=== PATIENT | female | born 1985 | race African-American/Black ===

== ENCOUNTER 2017-04-13 21:05 | Observation (INO) | payer SELFPAY ==
--- NOTE | 2017-04-13 21:23 | PDOC ---
Rapid Medical Evaluation Chief Complaint: Respiratory Time Seen by Provider: 04/13/17 21:16 Medical Evaluation: Allergies Allergy/AdvReac Type Severity Reaction Status Date / Time ciprofloxacin [From Cipro] Allergy Verified 04/13/17 21:15 pseudoephedrine Allergy Verified 04/13/17 21:15 [From Sudafed] acetaminophen [From Tylenol] AdvReac Verified 04/13/17 21:15 04/13/17 21:16 32yo female patient w/ PmHx: seasonale allergies, sinus infection, uterine fibroids presents to ED c/o wheezing x 4 weeks. Patient was seen at Urgent Care diagnose with influenza 3 weeks ago and given Zithromax and prednisone. Patient was also seen at [facility] and [facility] for similar symptoms which have not resolved. Patient reports taking 60 mg of prednisone and albuterol treatment prior to her arrival today. LNMP: Mar 21.
[2017-04-13] MEDS: ALBUTEROL SO4 0.083% IH SOL 2.5 MG/3 ML VIAL.NEB. NEB SCH ×4 (21:43→22:33)
[2017-04-13 21:51] LABS: URINE APPEARANCE CLEAR; URINE BILIRUBIN NEGATIVE (NEGATIVE); URINE BLOOD NEGATIVE (NEGATIVE); URINE COLOR YELLOW; URINE GLUCOSE (UA) NEGATIVE (NEGATIVE); URINE KETONE NEGATIVE (NEGATIVE); URINE LEUK ESTERASE TRACE (NEGATIVE); URINE NITRITE NEGATIVE (NEGATIVE); URINE PROTEIN NEGATIVE (NEGATIVE); URINE UROBILINOGEN NEGATIVE mg/dL (0.2-1.0)
--- NOTE | 2017-04-13 22:02 | PDOC ---
History of Present Illness - History of Present Illness Initial Comments: 04/13/17 22:00 CHIEF COMPLAINT: cough, wheezing HISTORY OF PRESENT ILLNESS: 32 yo F with hx presents to ED c/o wheezing x 4 weeks. Patient was seen at Urgent Care diagnose with influenza 3 weeks ago and given Zithromax and prednisone. Patient was also seen at [facility] and [facility] for similar symptoms which have not resolved. Patient reports she was prescribed 40 mg prednisone daily but as she was driving up here today she called her doctor "who I know works here and he told me to take another one" for a total of 60 mg of prednisone prior to arrival today. She reports the wheezing has been intermittent and "will go away for a little bit, but then it'll come back even worse." PAST MEDICAL HISTORY: allergies, sinus infections, uterine fibroids FAMILY HISTORY: Denies SOCIAL HISTORY: Denies tobacco, alcohol, illicit drug use. SURGICAL HISTORY: Denies ALLERGIES: "all the OTC meds", cipro REVIEW OF SYSTEMS General/Constitutional: Denies fever or chills. Denies weakness. HEENT: Denies change in vision. Denies ear pain or discharge. Denies sore throat. Cardiovascular: Denies chest pain or shortness of breath. Respiratory: Cough and intermittent recurrent wheezing x 1 month. Gastrointestinal: Denies nausea, vomiting, diarrhea or constipation. Genitourinary: Denies dysuria, frequency, or change in urination. Musculoskeletal: Denies joint or muscle swelling or pain. Denies neck or back pain. Skin: Denies rash. Neurologic: Denies headache, vertigo, loss of consciousness, or loss of sensation. PHYSICAL EXAM General Appearance: Well-appearing, appropriately dressed. No apparent distress. HEENT: EOMI, PERRLA. No conjunctival pallor. No photophobia, scleral icterus. Neck: Supple. Trachea midline. No tenderness, rigidity, carotid bruit, stridor , lymphadenopathy, or thyromegaly. Respiratory/Chest: Persistent wheezing to left lower lung. No shortness of breath, chest tenderness, respiratory distress, accessory muscle use. No crackles, rales, rhonchi, stridor, wheezing, dullness Cardiovascular: RRR. S1, S2. Gastrointestinal/Abdominal: Normal bowel sounds. Abdomen soft, non-distended. No tenderness or rebound tenderness. No organomegaly, pulsatile mass, guarding , hernia, hepatomegaly, splenomegaly. Musculoskeletal/Extremities: Normal inspection. FROM of all extremities, normal capillary refill. Pelvis Stable. No CVA tenderness. No tenderness to extremities, pedal edema, swelling, erythema or deformity. Integumentary: Appropriate color, dry, warm. No cyanosis, erythema, jaundice or rash Neurologic: health center manager II-XII intact. Fully oriented, alert. Appropriate mood/affect. Motor strength 5/5. No appreciable EOM palsy, facial droop or sensory deficit. <Norma Barrow - Last Filed: 04/13/17 22:38> <Reshma Young - Last Filed: 04/14/17 01:57> - General Chief Complaint: Respiratory Stated Complaint: REF BYDOC, COUGH Past History - Suicide/Smoking/Psychosocial Hx Smoking History: Never smoked <Norma Barrow - Last Filed: 04/13/17 22:38> <Reshma Young - Last Filed: 04/14/17 01:57> - Past Medical History Allergies/Adverse Reactions: Allergies Allergy/AdvReac Type Severity Reaction Status Date / Time birch Allergy Verified 04/13/17 21:17 ciprofloxacin [From Cipro] Allergy Verified 04/13/17 21:15 pseudoephedrine Allergy Verified 04/13/17 21:15 [From Sudafed] acetaminophen [From Tylenol] AdvReac Verified 04/13/17 21:15 ibuprofen [From Motrin] AdvReac Verified 04/13/17 21:16 catscan dye Allergy Uncoded 04/13/17 21:17 Home Medications: Ambulatory Orders Albuterol Sulfate Inhaler - [Ventolin Hfa Inhaler -] 1 - 2 inh PO Q4H 04/13/17 Budesonide/Formeterol Fumarate [SYMBICORT 160/4.5mcg -] 1 inh PO BID 04/13/17 Prednisone [Deltasone] 60 mg PO ASDIR 04/13/17 *Physical Exam - Vital Signs Last Vital Signs Temp Pulse Resp BP Pulse Ox 98.7 F 104 H 20 131/91 95 04/13/17 21:17 04/13/17 21:17 04/13/17 21:17 04/13/17 21:17 04/13/17 21:17 <Norma Barrow - Last Filed: 04/13/17 22:38> - Vital Signs Last Vital Signs Temp Pulse Resp BP Pulse Ox 98.7 F 104 H 20 131/91 95 04/13/17 21:17 04/13/17 21:17 04/13/17 21:17 04/13/17 21:17 04/13/17 21:17 <Reshma Young D - Last Filed: 04/14/17 01:57> ED Treatment Course - LABORATORY CBC & Chemistry Diagram: 04/13/17 22:43 04/13/17 22:43 - ADDITIONAL ORDERS Additional order review: Laboratory Results 04/13/17 04/13/17 22:43 21:27 Sodium 141 Potassium 4.1 Chloride 106 Carbon Dioxide 18 L Anion Gap 17 H BUN 12 Creatinine 0.9 Creat Clearance w eGFR > 60 Random Glucose 127 H Calcium 9.3 Total Bilirubin 0.5 AST 12 L ALT 24 Alkaline Phosphatase 74 Total Protein 8.3 H Albumin 4.2 Urine Color Yellow Urine Appearance Clear Urine pH 5.0 Ur Specific [place] 1.015 Urine Protein Negative Urine Glucose (UA) Negative Urine Ketones Negative Urine Blood Negative Urine Nitrite Negative Urine Bilirubin Negative Urine Urobilinogen Negative Ur Leukocyte Esterase Trace Urine WBC (Auto) 2 Urine RBC (Auto) 2 Ur Epithelial Cells Rare Urine Bacteria Rare Urine Mucus Rare Urine HCG, Qual Negative 04/13/17 22:43 RBC 4.92 MCV 84.1 MCHC 31.9 L RDW 15.3 MPV 10.2 Neutrophils % 82.2 Lymphocytes % 12.2 Monocytes % 5.5 Eosinophils % 0.0 Basophils % 0.1 - RADIOLOGY Radiology Studies Ordered: Category Date Time Status CHEST PA & LAT [RAD] Stat Radiology 04/13/17 21:21 Completed - Medications Given in the ED: ED Medications Discontinued Medications Generic Name Dose Route Start Last Admin Trade Name Freq PRN Reason Stop Dose Admin Albuterol Sulfate 1 amp 04/13/17 21:30 04/13/17 22:33 Ventolin 0.083% Nebulizer Soln - NEB 04/13/17 22:16 1 amp Q15M VINNIE Administration Magnesium Sulfate 2 gm 04/13/17 22:41 04/13/17 23:19 Magnesium Sulfate IVPB 04/13/17 22:42 2 gm ONCE ONE Administration Sodium Chloride 1,000 ml 04/13/17 22:43 04/13/17 23:19 Normal Saline - IV 04/13/17 22:44 1,000 ml ONCE ONE Administration <Reshma Young - Last Filed: 04/14/17 01:57> Medical Decision Making - Medical Decision Making 04/13/17 22:40 32 yo F with hx presents to ED c/o wheezing x 4 weeks. Patient was ordered 4 treatments of albuterol in triage and CXR. After 4 treatments patient continues to have wheezing bilaterally. Patient has already been treated with steroids today. Will order Mag sulfate. CXR unremarkable. Case discussed in detail with SHADI Young including history, physical exam and ancillary studies. In brief, this patient is being seen in the ED for a chief complaint of: wheezing x 1 montth Pending results: reevaluate after Mag Sulfate Plan for disposition as follows: pending PAVER OPERATOR Hector has assumed care for the patient and will complete the evaluation and treatment. <Norma Barrow - Last Filed: 04/13/17 22:38> - Medical Decision Making 04/14/17 01:[address] Jiménez. Patient to be admitted under observation. <Reshma Young - Last Filed: 04/14/17 01:57> *DC/Admit/Observation/Transfer <Norma Barrow - Last Filed: 04/13/17 22:38> - Discharge Dispostion Admit: Yes <Reshma Young - Last Filed: 04/14/17 01:57> Diagnosis at time of Disposition: Asthma exacerbation Qualifiers: Asthma severity: severe Asthma persistence: persistent Qualified Code(s): J45.51 - Severe persistent asthma with (acute) exacerbation - Discharge Dispostion Condition at time of disposition: Fair
[2017-04-13 22:14] LABS: EPI CELLS RARE /HPF (FEW); HCG,QUALITATIVE URINE NEGATIVE; URINE BACTERIA RARE /hpf (NONE SEEN); URINE MUCUS RARE
[2017-04-13] MEDS ORDERED: ALBUTEROL SO4 0.083% IH SOL 2.5 MG/3 ML VIAL.NEB. NEB ONE (22:18)
[2017-04-13] MEDS ORDERED: MAGNESIUM SULF 50% (8.12 MEQ/2 ML-1 GM VIAL) IVPB ONE (22:41)
[2017-04-13] MEDS ORDERED: SODIUM CHLORIDE 0.9% 1000 ML INFUS.BAG IV ONE (22:43)
[2017-04-13] MEDS ORDERED: MAGNESIUM SULF 50% (8.12 MEQ/2 ML-1 GM VIAL) ONE (23:03)
[2017-04-13 23:42] LABS: BASO % 0.1 % (0-2.0); HEMATOCRIT 41.4 % (32.4-45.2); HEMOGLOBIN 13.2 GM/dL (10.7-15.3); LYMPH % 12.2 % (8-40); MCH 26.9 pg (25.7-33.7); MCHC 31.9 g/dl (32.0-36.0); MEAN CELL VOLUME 84.1 fl (80-96); MEAN PLT VOLUME 10.2 fl (7.5-11.1); MONO % 5.5 % (3.8-10.2); NEUT % 82.2 % (42.8-82.8); PLATELET COUNT 280 K/MM3 (134-434); RBC 4.92 M/mm3 (3.60-5.2); RDW 15.3 % (11.6-15.6); WHITE BLOOD COUNT 12.7 K/mm3 (4.0-10.0)
[2017-04-14 00:33] LABS: ALBUMIN 4.2 g/dl (3.4-5.0); ALK PHOS 74 U/L (45-117); ANION GAP 17 (8-16); BILIRUBIN,TOTAL 0.5 mg/dL (0.2-1.0); BLOOD UREA NITROGEN 12 mg/dL (7-18); CALCIUM 9.3 mg/dL (8.5-10.1); CHLORIDE 106 mmol/L (98-107); CO2 18 mmol/L (21-32); CREATININE 0.9 mg/dL (0.55-1.02); GLUCOSE,RANDOM 127 mg/dL (74-106); POTASSIUM 4.1 mmol/L (3.5-5.1); SGOT/AST 12 U/L (15-37); SGPT/ALT 24 U/L (12-78); SODIUM 141 mmol/L (136-145); TOT PROT 8.3 g/dl (6.4-8.2)
[2017-04-14] MEDS ORDERED: methylPREDNISolone NA SUCC 125 MG/2 ML VIAL IVPB ONE (01:57)
[2017-04-14] MEDS ORDERED: SODIUM CHLORIDE 500 ML IV STA (01:57)
[2017-04-14] MEDS ORDERED: methylPREDNISolone NA SUCC 125 MG/2 ML VIAL ONE (02:22)
--- NOTE | 2017-04-14 02:42 | HP ---
CHIEF COMPLAINT: wheezing and shortness of breath PCP: Not on staff HISTORY OF PRESENT ILLNESS: Patient is a 32 year old female with a PMHx of seasonal allergies who presented to the ED for worsening shortness of breath. Patient states since January 2017 she's had a productive cough with green/yellow phlegm associated with wheezing and was prescribed a z-pack with prednisone from an urgent care. Patient states she continued to have wheezing and shortness of breath and decided to go to [facility] in [place] one week ago and was also given nebulizer. Patient still continued to have wheezing and shortness of breath and returned to the urgent care the next day and they diagnosed her with influenza but was outside of the treatment window. Patient then went to [facility] two days ago for continuous wheezing and short of breath and was given 8 to 9 rounds of nebulizer treatment. Patient was then discharged on Prednisone 40mg daily and nebulizer. Today, patient reports she was unable to walk a few steps without feeling short of breath and was starting to have difficulty speaking, which prompted this hospital visit. Patient admits to being around sick contacts at work. Patient reports never being intubated but does report being admitted for similar symptoms. However, patient denies ever being officially diagnosed with Asthma. Patient reports having her flu shot this year. Otherwise, patient denies fever, chills, nausea, vomiting, abdominal pain, chest pain, palpitations, headaches, Acute vision changes, loss of consciousness, frequency, dysuria, hematuria. ER course was notable for: (1) Nebulizer treatments (2) Magnesium 2gm (3) Solumedrol 125mg IVP Recent Travel: Denies PAST MEDICAL HISTORY: Seasonal Allergies and Uterine Fibroids PAST SURGICAL HISTORY: Denies Social History: Works as an professor of sociology Smoking: Denies Alcohol: Denies Drugs: Denies Family History: Siblings- Asthma Allergies birch Allergy (Verified 04/13/17 21:17) ciprofloxacin [From Cipro] Allergy (Verified 04/13/17 21:15) pseudoephedrine [From Sudafed] Allergy (Verified 04/13/17 21:15) acetaminophen [From Tylenol] Adverse Reaction (Verified 04/13/17 21:15) ibuprofen [From Motrin] Adverse Reaction (Verified 04/13/17 21:16) catscan dye Allergy (Uncoded 04/13/17 21:17) HOME MEDICATIONS: Home Medications Medication Instructions Recorded Albuterol Sulfate Inhaler - 1 - 2 inh PO Q4H 04/13/17 [Ventolin Hfa Inhaler -] Budesonide/Formeterol Fumarate 1 inh PO BID 04/13/17 [SYMBICORT 160/4.5mcg -] Prednisone [Deltasone] 60 mg PO ASDIR 04/13/17 REVIEW OF SYSTEMS CONSTITUTIONAL: Absent: fever, chills, diaphoresis, generalized weakness, malaise, loss of appetite, weight change HEENT: Absent: rhinorrhea, nasal congestion, throat pain, throat swelling, difficulty swallowing, mouth swelling, ear pain, eye pain, visual changes CARDIOVASCULAR: Absent: chest pain, syncope, palpitations, irregular heart rate, lightheadedness , peripheral edema RESPIRATORY: cough, shortness of breath, dyspnea with exertion, wheezing Absent: orthopnea, stridor, hemoptysis GASTROINTESTINAL: Absent: abdominal pain, abdominal distension, nausea, vomiting, diarrhea, constipation, melena, hematochezia GENITOURINARY: Absent: dysuria, frequency, urgency, hesitancy, hematuria, flank pain, genital pain MUSCULOSKELETAL: Absent: myalgia, arthralgia, joint swelling, back pain, neck pain SKIN: Absent: rash, itching, pallor HEMATOLOGIC/IMMUNOLOGIC: Absent: easy bleeding, easy bruising, lymphadenopathy, frequent infections ENDOCRINE: Absent: unexplained weight gain, unexplained weight loss, heat intolerance, cold intolerance NEUROLOGIC: Absent: headache, focal weakness or paresthesias, dizziness, unsteady gait, seizure, mental status changes, bladder or bowel incontinence PSYCHIATRIC: Absent: anxiety, depression, suicidal or homicidal ideation, hallucinations. PHYSICAL EXAMINATION Vital Signs - 24 hr 04/13/17 04/13/17 21:14 21:17 Temperature 98.7 F Pulse Rate 104 H 104 H Respiratory 20 20 Rate Blood Pressure 131/91 O2 Sat by Pulse 95 95 Oximetry (%) GENERAL: Awake, alert, and fully oriented, in no acute distress. HEAD: Normal with no signs of trauma. EYES: Pupils equal, round and reactive to light, extraocular movements intact, sclera anicteric, conjunctiva clear. No lid lag. EARS, NOSE, THROAT: Oropharynx clear without exudates. Moist mucous membranes. NECK: Normal range of motion, supple without lymphadenopathy, JVD, or masses. LUNGS: Inspiratory and expiratory wheezing throughout lung bases and anteriorly with no accessory muscle use. HEART: Regular rate and rhythm, normal S1 and S2 without murmur, rub or gallop. ABDOMEN: Soft, nontender, not distended, normoactive bowel sounds, no guarding, no rebound, no masses. MUSCULOSKELETAL: No CVA tenderness. UPPER EXTREMITIES: 2+ pulses, warm, well-perfused. No cyanosis. No clubbing. No peripheral edema. LOWER EXTREMITIES: 2+ pulses, warm, well-perfused. No calf tenderness. No peripheral edema. NEUROLOGICAL: Cranial nerves II-XII intact. Normal speech. Motor strength 5/5 bilaterally with sensory intact. 2+ dp pulses bilaterally PSYCHIATRIC: Cooperative. Good eye contact. Appropriate mood and affect. SKIN: Warm, dry, normal turgor, no rashes or lesions noted, normal capillary refill. Laboratory Results - last 24 hr 04/13/17 04/13/17 04/13/17 21:27 22:43 22:43 WBC 12.7 H RBC 4.92 Hgb 13.2 Hct 41.4 MCV 84.1 MCH 26.9 MCHC 31.9 L RDW 15.3 Plt Count 280 MPV 10.2 Neutrophils % 82.2 Lymphocytes % 12.2 Monocytes % 5.5 Eosinophils % 0.0 Basophils % 0.1 Sodium 141 Potassium 4.1 Chloride 106 Carbon Dioxide 18 L Anion Gap 17 H BUN 12 Creatinine 0.9 Creat Clearance w eGFR > 60 Random Glucose 127 H Calcium 9.3 Total Bilirubin 0.5 AST 12 L ALT 24 Alkaline Phosphatase 74 Total Protein 8.3 H Albumin 4.2 Urine Color Yellow Urine Appearance Clear Urine pH 5.0 Ur Specific [place] 1.015 Urine Protein Negative Urine Glucose (UA) Negative Urine Ketones Negative Urine Blood Negative Urine Nitrite Negative Urine Bilirubin Negative Urine Urobilinogen Negative Ur Leukocyte Esterase Trace Urine WBC (Auto) 2 Urine RBC (Auto) 2 Ur Epithelial Cells Rare Urine Bacteria Rare Urine Mucus Rare Urine HCG, Qual Negative IMAGES Chest X-Ray (04/14/17): No acute pathology ASSESSMENT/PLAN: Patient is a 32 year old female who presented for worsening shortness of breath and wheezing. Patient admitted for further monitoring and management. Acute Asthma Exacerbation -Patient was never officially diagnosed with Asthma -Peak flow ordered -Continue Albuterol nebulizer TID standing -Continue Solu-medrol 40mg IVPB Q8H -Pulmonology consult placed. Will likely require outpatient PFT's Anion Gap with Low Carbon Dioxide -Unknow etiology and will need to rule out etiologies -Will continue to monitor BMP F/E/N -Tolerates PO. On no fluids -Electrolytes wnl -Regular diet Prophylaxis -Low risk. Ambulates for DVT -No GI required Dispositionode -Will need to be observed over 24hours. -Full c Visit type - Emergency Visit Emergency Visit: Yes ED Registration Date: 04/14/17 Care time: The patient presented to the Emergency Department on the above date and was hospitalized for further evaluation of their emergent condition. - New Patient This patient is new to me today: Yes Date on this admission: 04/14/17 - Critical Care Critical Care patient: No
--- NOTE | 2017-04-14 06:24 | PN ---
Teaching Attending Note Name of Resident: Irma Khan ATTENDING PHYSICIAN STATEMENT I saw and evaluated the patient. Chart, data, imaging reviewed. I reviewed the resident's note and discussed the case with the resident. I agree with the resident's findings and plan as documented. SUBJECTIVE: 32 yo F with hx presents to ED c/o wheezing x 4 weeks. Patient was seen at Urgent Care diagnosed with influenza 3 weeks ago and given Zithromax and prednisone. Patient was also seen at [facility] and [facility] for similar symptoms, prescribed prednisone. SOB and wheezing worsened and pt presented to [facility]. She uses symbicort inhaler at home, reports compliance with her inhaler. C/o chest tightness and shortness of breath, some improvement after solumedrol and albuterol inhalation in ER. Reports previous adverse reaction to ipratropium bromide. Last Vital Signs Temp Pulse Resp BP Pulse Ox 98.7 F 104 H 20 131/91 95 04/13/17 21:17 04/13/17 21:17 04/13/17 21:17 04/13/17 21:17 04/13/17 21:17 general- appears comfortable, speaking in full sentences , nontoxic appearing neck -supple, no neck masses cv -s+s2+, RRR chest - scant, diffuse wheezing abdomen- soft, nt, no masses ext- no edema skin- no rashes noted CXR -no infiltrates or consolidations, clear lungs ASSESSMENT AND PLAN: #Asthma exacerbation while on prednisone, possibly triggered by cold weather. Reported adverse drug reaction vs allergy to atrovent -continue albuterol nebulizers q4hrs PRN -prednisone 40mg PO daily -resume symbicort (home medication ) -check baseline peak flow and monitor -educated patient on avoidance of known trigger factors -patient should be seen by job developer while inpatient as asthma recently diagnosed -PFTS as outpatient -supplemental oxygen via nasal cannula if necessary #DVT ppx heparin sc #Diet- normal diet
[2017-04-14] MEDS ORDERED: ALBUTEROL SO4 2.5/IPRATROPIUM 0.5 INH SOL 3 ML VIAL.NEB. NEB SCH (08:00)
[2017-04-14] MEDS ORDERED: methylPREDNISolone NA SUCC 40 MG/1 ML VIAL IVPUSH SCH (10:00)
[2017-04-14] MEDS ORDERED: ALBUTEROL SO4 0.083% IH SOL 2.5 MG/3 ML VIAL.NEB. NEB ONE (10:30)
[2017-04-14] MEDS: methylPREDNISolone NA SUCC 125 MG/2 ML VIAL IVPUSH SCH ×2 (10:40→18:25)
[2017-04-14] MEDS: ALBUTEROL SO4 0.083% IH SOL 2.5 MG/3 ML VIAL.NEB. NEB SCH ×2 (10:40→14:36)
--- NOTE | 2017-04-14 12:42 | HOSP ---
Subjective - Review of Symptoms Subjective: c/o wheezing. assoc with productive yellow sputum. was still on pred on discharge and completed zpack prior to arrival. was taking symbicort twice a day but ran out 3 days ago. uses albuterol rescue inhaler 10x/day. not at night. denies CP, SOB, fever, chills, N/V/C/D. denies hx of tobacco use. was never formally diagnosed with asthma Current Medications Generic Name Dose Route Start Last Admin Trade Name Kevan PRN Reason Stop Dose Admin Albuterol Sulfate 1 amp 04/14/17 08:00 04/14/17 10:40 Ventolin 0.083% Nebulizer Soln - NEB 1 amp RTID VINNIE Administration Methylprednisolone Sodium Succinate 60 mg 04/14/17 10:00 04/14/17 10:40 Solu-Medrol - IVPUSH 60 mg Q8H-IV VINNIE Administration Last Vital Signs Temp Pulse Resp BP Pulse Ox 98.1 F 71 18 121/74 98 04/14/17 07:20 04/14/17 07:20 04/14/17 07:20 04/14/17 07:20 04/14/17 07:20 General NAD CV S1 S2 RRR no murmur/tub/gallop Lungs CTA B/L poor inspiratory effort Abdomen soft NT/ND obses Extremities no pedal edema CBCD WBC 12.7 K/mm3 (4.0-10.0) H 04/13/17 22:43 RBC 4.92 M/mm3 (3.60-5.2) 04/13/17 22:43 Hgb 13.2 GM/dL (10.7-15.3) 04/13/17 22:43 Hct 41.4 % (32.4-45.2) 04/13/17 22:43 MCV 84.1 fl (80-96) 04/13/17 22:43 MCHC 31.9 g/dl (32.0-36.0) L 04/13/17 22:43 RDW 15.3 % (11.6-15.6) 04/13/17 22:43 Plt Count 280 K/MM3 (134-434) 04/13/17 22:43 MPV 10.2 fl (7.5-11.1) 04/13/17 22:43 CMP Sodium 141 mmol/L (136-145) 04/13/17 22:43 Potassium 4.1 mmol/L (3.5-5.1) 04/13/17 22:43 Chloride 106 mmol/L (98-107) 04/13/17 22:43 Carbon Dioxide 18 mmol/L (21-32) L 04/13/17 22:43 Anion Gap 17 (8-16) H 04/13/17 22:43 BUN 12 mg/dL (7-18) 04/13/17 22:43 Creatinine 0.9 mg/dL (0.55-1.02) 04/13/17 22:43 Creat Clearance w eGFR > 60 (>60) 04/13/17 22:43 Calcium 9.3 mg/dL (8.5-10.1) 04/13/17 22:43 Total Bilirubin 0.5 mg/dL (0.2-1.0) 04/13/17 22:43 AST 12 U/L (15-37) L 04/13/17 22:43 ALT 24 U/L (12-78) 04/13/17 22:43 Alkaline Phosphatase 74 U/L (45-117) 04/13/17 22:43 Total Protein 8.3 g/dl (6.4-8.2) H 04/13/17 22:43 Albumin 4.2 g/dl (3.4-5.0) 04/13/17 22:43 A/P 32yo F with PMH recent asha exacerbation was seen at [facility] and was in ER for only 12H and d/c with pred taper, symbicort and Zpack and obesity presented to the ER with worsening wheezing and cough 1. Acute Asthma exacerbation-possible exacerbated by cold weather and missing maintenance medications. currently saturating well on RA. no wheezing on my exam but just completed neb treatment. on Solumedrol 60mg Q8H. re-start symbicort and nebs prn. pulmonary eval. 2. obesity- recommend lifestyle changes with dietary and excercise. goal 1lb per week 3. Leukcytosis- on steroids at home. no signs of infection. UA and CXR negative. afebrile. recently completed zpack 4. DVT ppx- EAM 5. all questions answered. verbalized agreement and understanding of plan. anticipate discharge in 24-48H Physical Examination Vital Signs: Vital Signs Temperature 98.1 F 04/14/17 07:20 Pulse Rate 71 04/14/17 07:20 Respiratory Rate 18 04/14/17 07:20 Blood Pressure 121/74 04/14/17 07:20 O2 Sat by Pulse Oximetry (%) 98 04/14/17 07:20 Labs: CBC, BMP 04/13/17 22:43 04/13/17 22:43
[2017-04-14] MEDS ORDERED: BUDESONIDE/FORMETEROL FUMARATE 160/4.5 mcg INHALER IH SCH (12:45)
[2017-04-14] MEDS ORDERED: PT OWN MED DRAWER 7, Y5N ONE ×2 (15:44→18:17)
[2017-04-14 16:11] VITALS: BMI 29.2
--- NOTE | 2017-04-14 16:51 | CON.PULM ---
Consult Consult Specialty:: PULMONARY Referred by:: Dr. Husain Reason for Consultation:: asthma exacerbation - History of Present Illness Chief Complaint: shortness of breath History of Present Illness: 32yo female with h/o seasonal allergies, asthma symptoms who was admitted with worsening shortness of breath since January. Has been experiencing shortness of breath, chest tightness, wheezing and cough productive of yellow/green sputum. Has had 2 emergency room visits recently. Has been on prednisone frequently in the past 2 months. Was prescribed Symbicort at one point with some improvement but if not, she is using her rescue inhaler up to 15x/day. Has frequent night time symptoms that wake her up. She is a never smoker. Works as an commercial litigation attorney. Both siblings and other relatives with asthma as well. - History Source History Provided By: Patient, Medical Record Limitations to Obtaining History: No Limitations - Past Medical History ...LMP: 04/01/17 ...: No - Alcohol/Substance Use Hx Alcohol Use: Yes (social) - Smoking History Smoking history: Never smoked Have you smoked in the past 12 months: No Home Medications - Allergies Allergies/Adverse Reactions: Allergies Allergy/AdvReac Type Severity Reaction Status Date / Time birch Allergy Verified 04/13/17 21:17 ciprofloxacin [From Cipro] Allergy Verified 04/13/17 21:15 pseudoephedrine Allergy Verified 04/13/17 21:15 [From Sudafed] acetaminophen [From Tylenol] AdvReac Verified 04/13/17 21:15 ibuprofen [From Motrin] AdvReac Verified 04/13/17 21:16 catscan dye Allergy Uncoded 04/13/17 21:17 - Home Medications Home Medications: Ambulatory Orders Albuterol Sulfate Inhaler - [Ventolin Hfa Inhaler -] 1 - 2 inh PO Q4H 04/13/17 Budesonide/Formeterol Fumarate [SYMBICORT 160/4.5mcg -] 1 inh PO BID 04/13/17 Prednisone [Deltasone] 60 mg PO ASDIR 04/13/17 Family Disease History - Family Disease History Family Disease History: Respiratory: Brother (asthma), Sister (asthma) Review of Systems - Review of Systems Constitutional: reports: Weakness. denies: Chills, Fever Eyes: denies: Recent Change in Vision HENT: denies: Throat Pain Neck: denies: Stiffness, Tenderness Cardiovascular: reports: Shortness of Breath. denies: Chest Pain, Edema, Palpitations Respiratory: reports: Cough, Exercise Intolerance, SOB, SOB on Exertion, Wheezing. denies: Hemoptysis Gastrointestinal: denies: Abdominal Pain, Nausea, Vomiting Genitourinary: denies: Dysuria, Hematuria Neurological: denies: Dizziness, Headache Endocrine: denies: Unexplained Weight Loss Physical Exam Vital Sings: Vital Signs Temperature 97.8 F 04/14/17 15:53 Pulse Rate 73 04/14/17 15:53 Respiratory Rate 18 04/14/17 15:53 Blood Pressure 129/74 04/14/17 15:53 O2 Sat by Pulse Oximetry (%) 95 04/14/17 15:53 Constitutional: Yes: Calm Eyes: Yes: Conjunctiva Clear, EOM Intact HENT: Yes: Atraumatic, Normocephalic Neck: Yes: Supple, Trachea Midline Cardiovascular: Yes: Regular Rate and Rhythm Respiratory: Yes: Regular, Rhonchi, Wheezes ...Clubbing: No Gastrointestinal: Yes: Normal Bowel Sounds, Soft. No: Tenderness Edema: No Neurological: Yes: Alert, Oriented Labs: CBC, BMP 04/13/17 22:43 04/13/17 22:43 Imaging - Results Chest X-ray: Report Reviewed, Image Reviewed (no infiltrates) Problem List - Problems (1) Asthma exacerbation Code(s): J45.901 - UNSPECIFIED ASTHMA WITH (ACUTE) EXACERBATION Qualifiers: Asthma severity: severe Asthma persistence: persistent Qualified Code(s) : J45.51 - Severe persistent asthma with (acute) exacerbation Assessment/Plan Acute Asthma Exacerbation - agree with IV medrol, continue current dose - if continues to improve, can decrease to 40mg q8h in AM - inhaled bronchodilators standing and PRN - monitor daily peak flow - start singulair - will need outpt f/u, PFTs, IgE level and allergy testing - when ready for discharge, would place on prednisone taper, high dose LABA/ICS , singulair and albuterol MDI PRN - DVT prophylaxis Thank you for this consult Haroon Gallego MD
[2017-04-14] MEDS ORDERED: ALBUTEROL SO4 0.083% IH SOL 2.5 MG/3 ML VIAL.NEB. NEB PRN (16:54)
[2017-04-14] MEDS: MONTELUKAST NA 10 MG TABLET PO SCH (22:21)
[2017-04-14] MEDS: BUDESONIDE/FORMETEROL FUMARATE 160/4.5 mcg INHALER IH SCH (22:21)
[2017-04-14] MEDS: ALBUTEROL SO4 2.5/IPRATROPIUM 0.5 INH SOL 3 ML VIAL.NEB. NEB SCH (22:50)
[2017-04-15] MEDS: methylPREDNISolone NA SUCC 125 MG/2 ML VIAL IVPUSH SCH ×3 (03:00→17:30)
[2017-04-15] MEDS: ALBUTEROL SO4 2.5/IPRATROPIUM 0.5 INH SOL 3 ML VIAL.NEB. NEB SCH ×4 (08:25→20:35)
[2017-04-15] MEDS ORDERED: PT OWN MED DRAWER 7, Y5N ONE ×2 (10:27→21:16)
[2017-04-15] MEDS: BUDESONIDE/FORMETEROL FUMARATE 160/4.5 mcg INHALER IH SCH ×2 (10:28→21:23)
[2017-04-15 11:07] LABS: BASO % 0.2 % (0-2.0); HEMATOCRIT 38.4 % (32.4-45.2); HEMOGLOBIN 12.2 GM/dL (10.7-15.3); LYMPH % 11.9 % (8-40); MCH 26.7 pg (25.7-33.7); MCHC 31.7 g/dl (32.0-36.0); MEAN CELL VOLUME 84.2 fl (80-96); MEAN PLT VOLUME 9.7 fl (7.5-11.1); MONO % 6.6 % (3.8-10.2); NEUT % 81.3 % (42.8-82.8); PLATELET COUNT 261 K/MM3 (134-434); RBC 4.56 M/mm3 (3.60-5.2); RDW 15.1 % (11.6-15.6); WHITE BLOOD COUNT 13.3 K/mm3 (4.0-10.0)
--- NOTE | 2017-04-15 11:25 | PN ---
Teaching Attending Note Name of Resident: Irma Khan ATTENDING PHYSICIAN STATEMENT I saw and evaluated the patient. I reviewed the resident's note and discussed the case with the resident. I agree with the resident's findings and plan as documented. SUBJECTIVE: c/o white discharge. has had in the past when was on steroids. states breathing is improved but continues to have persistent cough. not productive. dneis CP, fever, chills, N/V/C/D, dyuria or hematuria, or itching OBJECTIVE: Last Vital Signs Temp Pulse Resp BP Pulse Ox 97.8 F 61 18 129/71 95 04/15/17 07:56 04/15/17 07:56 04/15/17 07:56 04/15/17 07:56 04/15/17 08:45 General NAD CV S1 S2 RRR no murmur/rub/gallop Lungs CTA B/L no wheezing/rlaes/rhonchi Genital +White chunky discharge ASSESSMENT AND PLAN: 32yo F with PMH recent ashtma exacerbation was seen at [facility] and was in ER for only 12H and d/c with pred taper, symbicort and Zpack and obesity presented to the ER with worsening wheezing and cough 1. Acute Asthma exacerbation-possible exacerbated by cold weather and missing maintenance medications. currently saturating well on RA. will decrease medrol 40mg Q8H. can liekly transition to po tomorrow per pulmonary. encourage ambulation. on symbicort, nebs, singulair. will need PFT treatment as outpatinet. 2. Yeast infection- diflucan 150mg x1 3. obesity- recommend lifestyle changes with dietary and excercise. goal 1lb per week 4. Leukcytosis- on steroids at home. no signs of infection. UA and CXR negative. afebrile. recently completed zpack 5. DVT ppx- EAM 6. all questions answered. verbalized agreement and understanding of plan. anticipate discharge tomorrow
[2017-04-15] MEDS ORDERED: FLUCONAZOLE 150 MG TABLET PO ONE (12:00)
--- NOTE | 2017-04-15 13:33 | PN ---
Progress Note (short form) - Note Progress Note: PULMONARY Breathing improving. +cough with whitish sputum and wheezing. No fevers or chills. Peak flow done at bedside 460. Last Vital Signs Temp Pulse Resp BP Pulse Ox 97.8 F 61 18 129/71 95 04/15/17 07:56 04/15/17 07:56 04/15/17 07:56 04/15/17 07:56 04/15/17 08:45 Gen: NAD at rest Heart: RRR Lung: much improved, no wheezes/rhonchi appreciated Abd: soft, nontender Ext: no edema CBC, BMP 04/15/17 10:45 04/13/17 22:43 Active Medications Albuterol Sulfate (Ventolin 0.083% Nebulizer Soln -) 1 amp NEB Q4H PRN PRN Reason: SHORT OF BREATH/WHEEZING Last Admin: 04/14/17 17:31 Dose: 1 amp Albuterol/Ipratropium (Duoneb -) 1 amp NEB RQID [facility] Last Admin: 04/15/17 11:15 Dose: 1 amp Budesonide/Formoterol Fumarate (Symbicort 160/4.5mcg -) 2 puff IH BID [facility] Last Admin: 04/15/17 10:28 Dose: 2 puff Methylprednisolone Sodium Succinate (Solu-Medrol -) 40 mg IVPUSH Q8H-IV VINNIE Montelukast Sodium (Singulair -) 10 mg PO HS [facility] Last Admin: 04/14/17 22:21 Dose: 10 mg A/P Acute Asthma Exacerbation - agree with IV medrol taper - if continues to improve, can change steroids to PO prednisone 40mg daily and taper by 10mg q3days as outpt - inhaled bronchodilators standing and PRN - monitor daily peak flow - continue singulair - will need outpt f/u, PFTs, IgE level and allergy testing - when ready for discharge, would place on prednisone taper, high dose LABA/ICS , singulair and albuterol MDI PRN - DVT prophylaxis Problem List - Problems (1) Asthma exacerbation Code(s): J45.901 - UNSPECIFIED ASTHMA WITH (ACUTE) EXACERBATION Qualifiers: Asthma severity: severe Asthma persistence: persistent Qualified Code(s) : J45.51 - Severe persistent asthma with (acute) exacerbation
[2017-04-15] MEDS ORDERED: POLYETHYLENE GLYCOL 3350 119 GM BTL PO ONE (17:15)
[2017-04-15] MEDS: POLYETHYLENE GLYCOL 3350 119 GM BTL PO SCH (17:31)
--- NOTE | 2017-04-15 18:44 | PN ---
Physical Exam: SUBJECTIVE: Patient seen and examined by me at bedside. Patient states her breathing has improved compared to admission. She reports some wheezing but not as severe. Otherwise, patient denies fever, chills, nausea, vomiting, abdominal pain, chest pain, palpitations, headaches, acute vision changes. OBJECTIVE: Vital Signs Period Temp Pulse Resp BP Sys/Flower Pulse Ox Last 24 Hr 97.8 F-98.8 F 61-79 18-20 116-129/64-71 95-96 GENERAL: The patient is awake, alert, and fully oriented, in no acute distress. ENT: Oropharynx clear without exudates, moist mucous membranes. LUNGS: Breath sounds equal, clear to auscultation bilaterally, no wheezes, no crackles, no accessory muscle use. HEART: Regular rate and rhythm, S1, S2 without murmur, rub or gallop. ABDOMEN: Soft, nontender, nondistended, normoactive bowel sounds, no guarding, no rebound EXTREMITIES: 2+ pulses, warm, well-perfused, no edema. Laboratory Results - last 24 hr 04/15/17 04/15/17 04/15/17 07:30 07:30 10:45 WBC Cancelled 13.3 H Corrected WBC (auto) Cancelled RBC Cancelled 4.56 Hgb Cancelled 12.2 Hct Cancelled 38.4 MCV Cancelled 84.2 MCH Cancelled 26.7 MCHC Cancelled 31.7 L RDW Cancelled 15.1 Plt Count Cancelled 261 MPV Cancelled 9.7 Neutrophils % 81.3 Lymphocytes % 11.9 Monocytes % 6.6 Eosinophils % 0.0 Basophils % 0.2 Manual Slide Review Cancelled Platelet Comment Cancelled Magnesium 2.4 Active Medications Generic Name Dose Route Start Last Admin Trade Name Freq PRN Reason Stop Dose Admin Albuterol Sulfate 1 amp 04/14/17 16:54 04/14/17 17:31 Ventolin 0.083% Nebulizer Soln - NEB 1 amp Q4H PRN Administration SHORT OF BREATH/WHEEZING Albuterol/Ipratropium 1 amp 04/14/17 20:00 04/15/17 16:37 Duoneb - NEB 1 amp RQID VINNIE Administration Budesonide/Formoterol Fumarate 2 puff 04/14/17 16:53 04/15/17 10:28 Symbicort 160/4.5mcg - IH 2 puff BID VINNIE Administration Methylprednisolone Sodium Succinate 40 mg 04/15/17 18:00 04/15/17 17:30 Solu-Medrol - IVPUSH 40 mg Q8H-IV VINNIE Administration Montelukast Sodium 10 mg 04/14/17 22:00 04/14/17 22:21 Singulair - PO 10 mg HS VINNIE Administration Polyethylene Glycol 17 gm 04/15/17 17:30 04/15/17 17:31 Miralax (For Daily Use) - PO Not Given DAILY VINNIE IMAGES Chest X-Ray (04/14/17): No acute pathology ASSESSMENT/PLAN: Patient is a 32 year old female who presented for worsening shortness of breath and wheezing. Patient admitted for further monitoring and management. Acute Asthma Exacerbation-Improving -Likely secondary to cold weather -Continue Duoneb QID standing and Albuterol Q4H PRN -Continue Singulair 10mg HS -Taper steroids to Solu-medrol 40mg Q8H. Will try to taper to PO tomorrow -Will need outpatient follow up for PFT's Yeast Infection -diflucan 150mg one time dose Obesity -Lifestyle modification with exercise and nutrition F/E/N -Tolerates PO. On no fluids -Electrolytes wnl -Regular diet Prophylaxis -Low risk. Ambulates for DVT -No GI required Dispositionode -Will need to be observed over 24hours. -Full code Visit type - Emergency Visit Emergency Visit: Yes ED Registration Date: 04/14/17 Care time: The patient presented to the Emergency Department on the above date and was hospitalized for further evaluation of their emergent condition. - New Patient This patient is new to me today: No - Critical Care Critical Care patient: No
[2017-04-15] MEDS: MONTELUKAST NA 10 MG TABLET PO SCH (21:23)
[2017-04-16] MEDS: methylPREDNISolone NA SUCC 125 MG/2 ML VIAL IVPUSH SCH (02:02)
[2017-04-16] MEDS: ALBUTEROL SO4 2.5/IPRATROPIUM 0.5 INH SOL 3 ML VIAL.NEB. NEB SCH ×2 (08:00→11:52)
[2017-04-16 09:16] LABS: HEMATOCRIT 40.4 % (32.4-45.2); HEMOGLOBIN 12.9 GM/dL (10.7-15.3); MCH 26.7 pg (25.7-33.7); MCHC 31.8 g/dl (32.0-36.0); MEAN CELL VOLUME 83.9 fl (80-96); PLATELET COUNT 277 K/MM3 (134-434); RBC 4.82 M/mm3 (3.60-5.2); RDW 15.3 % (11.6-15.6); WHITE BLOOD COUNT 13.3 K/mm3 (4.0-10.0)
[2017-04-16] MEDS ORDERED: methylPREDNISolone NA SUCC 40 MG/1 ML VIAL IVPUSH SCH (09:42)
[2017-04-16] MEDS: POLYETHYLENE GLYCOL 3350 119 GM BTL PO SCH (09:47)
[2017-04-16] MEDS: BUDESONIDE/FORMETEROL FUMARATE 160/4.5 mcg INHALER IH SCH (09:47)
[2017-04-16 12:05] VITALS: BP 133/65; PULSE 101; TEMP 98.4
--- NOTE | 2017-04-16 12:11 | DS ---
Physical Exam: SUBJECTIVE: Patient seen and examined. asymptomatic. states cough mostly gone. ambulating halls without difficulty. denies Cp, fever, chills, n/v/C/D OBJECTIVE: Vital Signs Period Temp Pulse Resp BP Sys/Flower Pulse Ox Last 24 Hr 98.2 F-98.8 F 65-101 18-20 120-133/58-70 96-96 PHYSICAL EXAM GENERAL: The patient is awake, alert, and fully oriented, in no acute distress. HEAD: Normal with no signs of trauma. EYES: PERRL, extraocular movements intact, sclera anicteric, conjunctiva clear. ENT: Ears normal, nares patent, oropharynx clear without exudates, moist mucous membranes. NECK: Trachea midline, full range of motion, supple. LUNGS: Breath sounds equal, clear to auscultation bilaterally, no wheezes, no crackles, no accessory muscle use. HEART: Regular rate and rhythm, S1, S2 without murmur, rub or gallop. ABDOMEN: Soft, nontender, nondistended, normoactive bowel sounds, no guarding, no rebound, no hepatosplenomegaly, no masses. EXTREMITIES: 2+ pulses, warm, well-perfused, no edema. NEUROLOGICAL: Cranial nerves II through XII grossly intact. Normal speech, gait not observed. PSYCH: Normal mood, normal affect. SKIN: Warm, dry, normal turgor, no rashes or lesions noted. LABS Laboratory Results - last 24 hr 04/16/17 07:50 WBC 13.3 H RBC 4.82 Hgb 12.9 Hct 40.4 MCV 83.9 MCH 26.7 MCHC 31.8 L RDW 15.3 Plt Count 277 MPV 10.0 HOSPITAL COURSE: Date of Admission:04/14/17 Date of Discharge: 04/16/17 Admitting diagnosis Asthma exacerbation Pre hospital course Patient is a 32 year old female with a PMHx of seasonal allergies who presented to the ED for worsening shortness of breath. Patient states since January 2017 she's had a productive cough with green/yellow phlegm associated with wheezing and was prescribed a z-pack with prednisone from an urgent care. Patient states she continued to have wheezing and shortness of breath and decided to go to [facility] in [place] one week ago and was also given nebulizer. Patient still continued to have wheezing and shortness of breath and returned to the urgent care the next day and they diagnosed her with influenza but was outside of the treatment window. Patient then went to [facility] two days ago for continuous wheezing and short of breath and was given 8 to 9 rounds of nebulizer treatment. Patient was then discharged on Prednisone 40mg daily and nebulizer. Today, patient reports she was unable to walk a few steps without feeling short of breath and was starting to have difficulty speaking, which prompted this hospital visit. Patient admits to being around sick contacts at work. Patient reports never being intubated but does report being admitted for similar symptoms. However, patient denies ever being officially diagnosed with Asthma. Patient reports having her flu shot this year. Otherwise, patient denies fever, chills, nausea, vomiting, abdominal pain, chest pain, palpitations, headaches, Acute vision changes, loss of consciousness, frequency, dysuria, hematuria. Subsequent hospital course Medicine observation. Started on IV steroids, nebs an magenesium. re-started on symbicort and singulair was started. evaluated by pulmonary. clincially improved and steroids were tapered. saturating 96% on RA on discharge. d/c home on steroid taper and pulm follow up Minutes to complete discharge: 40 Discharge Summary Reason For Visit: EXACERBATION OF ASTHMA Current Active Problems Asthma exacerbation (Acute) Condition: Improved - Instructions Diet, Activity, Other Instructions: You were admitted to the hospital for an asthma exacerbation. Take the steroids tapered as listed below. Call the service delivery supervisor if you feel your wheezing worsens as you taper down the mediation. Take symbicort twice a day every day, regardless if you have symptoms Take Ventolin as needed for wheezing Take singulair by mouth daily Avoid excessive exposure to cold air and smoking, these can trigger your asthma. Try covering your nose and mouth while in the cold Slowly increase your activity as tolerated Follow up with your primary care doctor this week Follow up with the lung doctor that saw you here, his information has been provided Return to the hospital if your breathing worsens or develop chest pain steroid taper 04/17 take 4 tablets (40mg) 04/18 take 4 tablets (40mg) 04/19 take 4 tablets (40mg) 04/20 take 3 tablets (30mg) 04/21 take 3 tablets (30mg) 04/22 take 3 tablets (30mg) 04/23 take 2 tablets (20mg) 04/24 take 2 tablets (20mg) 04/25 take 2 tablets (20mg) 04/26 take 1 tablets (10mg) 04/27 take 1 tablets (10mg) 04/28 take 1 tablets (10mg) 04/29 You finished steroids Referrals: Haroon Gallego MD, MD [Staff Physician] - Disposition: HOME - Home Medications Comprehensive Discharge Medication List: Ambulatory Orders Albuterol Sulfate Inhaler - [Ventolin HFA Inhaler -] 1 - 2 inh PO Q4H #1 inhaler 04/16/17 Budesonide/Formeterol Fumarate [SYMBICORT 160/4.5mcg -] 1 inh PO BID #1 inhaler 04/16/17 Montelukast Na [Singulair -] 10 mg PO HS #30 tablet 04/16/17 Prednisone See Taper PO DAILY #30 tablet 04/16/17 This patient is new to me today: Yes Date on this admission: 04/16/17 Emergency Visit: No Critical Care patient: No - Discharge Referral Referred to [facility] No
== END 2017-04-16 13:00 | disposition home or self-care (01) ==
LOC: JER 21:05 → JERBED 04-14 01:57 → UNDOADMOB 04-14 02:06 → JERBED 04-14 02:06 → J6S 04-14 15:18
PROVIDERS: ADMIT Internal Medicine; ATTEND Internal Medicine
CPT/HCPCS: 36415; 71046-TC; 80053; 81003; 81015; 83735; 84703; 85025; 85027; 94640; 99285-25; G0378